=== PATIENT | female | born 1995 | race Two or more races ===

== ENCOUNTER 2024-07-12 14:02 | Emergency (ER) | payer MEDICAID, SELFPAY ==
[2024-07-12 14:05] VITALS: BMI 21.5
[2024-07-12 14:15] VITALS: BP 130/92; PULSE 95; RESP 18; TEMP 36.8; O2SAT 96
--- NOTE | 2024-07-12 14:25 | XR_ITS ---
Examination: PA lateral chest 2 views TECHNIQUE: Upright PA lateral chest 2 views Exam date and time: September 12, 2023 1432 hours INDICATIONS: Patient fell last night with injury to the chest, chest pain FINDINGS: Normal heart size No pneumothorax Clavicles ribs thoracic vertebral bodies appear intact IMPRESSION: No pneumothorax pulmonary contusion or hemothorax
[2024-07-12] MEDS: HYDROcodone/APAP 5/325 TABLET 1 TAB PO (14:44)
--- NOTE | 2024-07-12 15:01 | EDNOTE_ITS ---
ED Skin Abcess FB-RME/HPI General Chief complaint: Skin/Abscess/Foreign Body Stated complaint: OSMAR BREAST PAIN S/P FALL HX OF CYSTS Time Seen by Provider: 07/12/24 14:07 Arrival date/time: 07/12/24 14:02 29-year-old female presents to emergency department with complaints of chest wall pain and breast pain after a fall patient reports that she had a trip and fall patient ports no head or neck injury no other injuries Limitations: no limitations Related Data Previous Rx's ?Medication ?Instructions ?Recorded hydrocodone 5 mg-acetaminophen 325 1 tab PO BID PRN pain #10 tabs 07/12/24 mg tablet ibuprofen 600 mg tablet 600 mg PO Q6H #30 tabs 07/12/24 Allergies Allergy/AdvReac Type Severity Reaction Status Date / Time No Known Allergies Allergy Verified 07/12/24 14:12 Review of Systems Review of Systems Systems Reviewed: All systems reviewed, normal except as documented Constitutional Constitutional: Reports system reviewed and no additional complaints, except as documented, Denies fever(s) and Denies headache(s) Eyes Eyes: Reports system reviewed and no additional complaints, except as documented and Denies blurry vision ENT Ears, Nose, Mouth, and Throat: Reports system reviewed and no additional complaints, except as documented, Denies headache(s), Denies nasal congestion and Denies nasal discharge Cardiovascular Cardiovascular: Reports system reviewed and no additional complaints, except as documented, Denies chest pain and Denies dyspnea Respiratory Respiratory: Reports system reviewed and no additional complaints, except as documented, Denies chest congestion, Denies cough and Denies dyspnea Gastrointestinal Gastrointestinal: Reports system reviewed and no additional complaints, except as documented and Denies abdominal pain Musculoskeletal Musculoskeletal: Reports system reviewed and no additional complaints, except as documented and Reports other (Breast pain, chest wall pain) Integumentary/Breasts Skin/Breast: Reports system reviewed and no additional complaints, except as documented and Denies rash Neurologic Neurologic: Reports system reviewed and no additional complaints, except as documented, Reports as per HPI and Denies headache(s) Past Medical History Past Medical History NEUROLOGIC: Negative Neurological Disorders CARDIAC: Negative Congestive Heart Failure RESPIRATORY: Negative Chronic Obstructive Pulmonary Disease (COPD) GENITOURINARY: Negative Renal Disease ENDOCRINE: Negative Diabetes Mellitus Type 1 or Diabetes Mellitus Type 2 Social History SMOKING STATUS: Never smoker ED Exam General Limitations: Present no limitations General appearance: Present alert and in no apparent distress Head Head exam: Present atraumatic Eye Eye exam: Present normal appearance, PERRL and EOMI; Absent conjunctival injection ENT ENT exam: Present normal exam, normal oropharynx and mucous membranes moist Neck Neck exam: Present normal inspection, full ROM and trachea midline Chest Chest inspection: Present normal inspection, symmetric chest wall rise and tenderness (Chest wall pain) Respiratory Respiratory exam: Present normal lung sounds bilaterally; Absent respiratory distress Cardiovascular Cardiovascular exam: Present regular rate, normal rhythm and normal heart sounds Abdominal Exam Abdominal exam: Present soft and normal bowel sounds; Absent distention, tenderness, guarding, rebound or rigidity Extremities Exam Extremities exam: Present normal inspection and full ROM Back Exam Back exam: Present normal inspection and full ROM; Absent tenderness Neurological Exam Neurological exam: Present alert, oriented X3, CN II-XII intact, normal gait and reflexes normal; Absent motor sensory deficit Psychiatric Psychiatric exam: Present anxious; Absent flat affect, manic, homicidal ideation or suicidal ideation Skin Skin exam: Present warm, dry, intact and normal color; Absent rash Course Quality Measures none Orders Category Date Time Status XR chest 2V Stat Exams 07/12/24 14:25 Completed HYDROcodone*/APAP 5/325 [Vesuvius 5/325] Med 07/12/24 14:25 Discontinued 1 tab PO X1 ONE Vital Signs Vital signs: Vital Signs Temperature 98.2 F 07/12/24 14:15 Pulse Rate 95 07/12/24 14:15 Respiratory Rate 18 07/12/24 14:15 Blood Pressure 130/92 H 07/12/24 14:15 Pulse Oximetry (%) 96 07/12/24 14:15 Oxygen Delivery Method Room Air 07/12/24 14:15 O2 saturation 96% on room air within normal limits Skin / Abscess / Foreign Body MDM Narrative MDM Narrative:: 29-year-old female presents to the emergency department with complaints of chest wall pain and breast pain after a fall patient reports that she had a trip and fall patient ports no head or neck injury no other injuries On exam patient well-appearing patient is tearful and is anxious patient reports that she reports she is concerned that she may have breast cancer patient is awaiting follow-up with specialist patient recently had mammogram and ultrasounds and biopsy Patient reports she try to get pain medication per primary care doctor would not fill her medication Patient given pain medication here and discharged home with pain meds Chest x-ray obtained no acute emergent findings noted Patient discharged home in no distress to follow-up with primary care doctor in the next 24 to 48 hours and for any worsening symptoms to return to the ER immediately Patient data External records reviewed:: [facility] previous records Clinical information provided by:: patient Social determinants that could affect healthcare access:: none Patient has the following chronic illnesses:: See history How is presenting disease/condition affected by chronic disease/condition?: exacerbated by Evaluation data The following diagnostics were reviewed and interpreted by me:: radiology exam(s) Lab and/or radiology exams considered but not ordered:: Radiology obtain Interpretation Summary: Reviewed by me Medications / Prescriptions Medications or Prescriptions considered but not ordered:: Given Medication administrations:: Medication Administration History Discontinued Medications Hydrocodone Bitart/Acetaminophen (Hydrocodone/Apap 5/325 Tablet) 1 tab PO X1 ONE Stop: 07/12/24 14:26 Last Admin: 07/12/24 14:44 Dose: 1 tab Documented By: MP given Consultations Consultation(s) initiated? (list below): No Diagnosis Skin/Abscess Differential Diagnosis: other (Chest wall pain, anxiety) Most likely diagnosis given after review of the tests above:: Chest wall pain, anxiety Admission Indicated Admission indicated?: not indicated Admission Request Was there a request for admission?: No Disposition Plan Disposition Plan: Discharge Discharge Attestation Discharge Attestation: The patient and all family members were given an opportunity to ask questions an d understood the discharge instructions. Discharge instructions specifically effects, indications for sooner follow up or return to the emergency department, and the expected course of current diagnosis. Patient condition: Stable Discharge Plan Plan Patient Disposition: HOME (Self Care) Disposition Comment: Stable Prescriptions/Referrals Prescriptions/Med Rec: New hydrocodone-acetaminophen 5-325 mg tablet 1 tab PO BID MDD 10 PRN (Reason: pain) Qty: 10 0RF ibuprofen 600 mg tablet 600 mg PO Q6H Qty: 30 0RF Referrals: No Primary/Family,Physician [Primary Care Provider] - In 1 week Problem List Clinical Impression: Chest wall pain Patient/Caregiver Discharge Instructions Education Materials: Medicine for Pain Additional Instructions: Please follow up with your primary care doctor in the next 24-48hrs for any worsening symptoms return here immediately Print Language: Dutch Stand Alone Forms: Liza Award Info., Patient Portal Info Letter PA/DIRECTOR SECURITY MANAGEMENT Supervising Physician SHAI/ADA Supervising Physician: Dr Hatch
== END 2024-07-12 15:34 | disposition home or self-care (01) ==
PROVIDERS: Emergency Provider Emergency Medicine
DX: S29.9XXA Unspecified injury of thorax, initial encounter (principal); W01.0XXA Fall on same level from slipping, tripping and stumbling without subsequent striking against object, initial encounter
CPT/HCPCS: 71046; 99283; A9270